=== PATIENT | female | born 1975 | race Caucasian/White ===

== ENCOUNTER → 2017-03-02 | Outpatient (CLI) | payer OTHER ==
[~2017-03-02] MED LIST: ADVAIR 250/28 DISKU1 IH; ALLEGRA180 MG PO; KLONOPIN 0.5MG0.5 MG PO; LEXAPRO20 MG PO; PERCOCET 325 MG1 TA2 PO; PREDNISONE20 MG PO; PROVENTIL0.09 MG/A1 IH; TRINESSA 281 TAB PO; ZOFRAN4 M1 PO
== END ==
LOC: MC.RAD 12:51
DX: Z12.31 Encounter for screening mammogram for malignant neoplasm of breast (principal)